=== PATIENT | male | born 1975 | race Caucasian/White ===

== ENCOUNTER 2019-06-09 13:31 | Emergency (ER) | payer SELFPAY ==
[~2019-06-09] VITALS: Ht 185.4 cm; Wt 66.8 kg
[2019-06-09 13:33] VITALS: BP 148/94
[2019-06-09] MEDS ORDERED: ACETAMINOPHEN 500 MG TABLET ONE (13:51)
[2019-06-09] MEDS ORDERED: ACETAMINOPHEN 500 MG TABLET PO ONE (14:00)
== END 2019-06-09 14:07 | disposition home or self-care (01) ==
LOC: ED 13:45
DX: K02.9 Dental caries, unspecified (principal); F17.200 Nicotine dependence, unspecified, uncomplicated
CPT/HCPCS: 99283